=== PATIENT | female | born 1955 | race Caucasian/White ===

== ENCOUNTER → 2018-03-28 | Outpatient (CLI) | payer OTHER ==
[~2018-03-28] MED LIST: CELEBREX 200 M200 M1 PO; CRANBERRY425 MG PO; FOLIC ACID 40400 MCG PO; LYRICA 75 MG CA75 MG PO; MAGNESIUM OXID250 MG PO; MELATONIN 5 MG1 EAC1 PO; MULTIVITAMINS PO; NORETHINDRONE0.35 MG PO; ZOLOFT50 MG PO
== END ==
LOC: RAD 16:51
DX: M46.04 Spinal enthesopathy, thoracic region (principal)

== ENCOUNTER → 2019-09-04 | Outpatient (CLI) | payer BC, OTHER | LOC: CAT 10:31 | DX: M50.121 Cervical disc disorder at C4-C5 level with radiculopathy (principal); M48.02 Spinal stenosis, cervical region; M25.78 Osteophyte, vertebrae; M12.88 Other specific arthropathies, not elsewhere classified, other specified site ==

== ENCOUNTER → 2020-05-16 | Outpatient (CLI) | payer BC, OTHER | LOC: LAB 05-13 10:01 | PROVIDERS: ATTEND Anesthesiology | DX: Z01.812 Encounter for preprocedural laboratory examination (principal); Z11.59 Encounter for screening for other viral diseases ==